=== PATIENT | female | born 1935 | race Caucasian/White ===

== ENCOUNTER 2018-03-23 10:37 | Emergency (ER) | payer OTHER ==
[~2018-03-23] VITALS: Ht 162.6 cm; Wt 64.4 kg
--- NOTE | 2018-03-23 11:44 | ED GENERAL ADULT ---
History of Present Illness General Chief Complaint: Neck/Upper Back Pain/Injury Stated Complaint: NECK PAIN S/P FALL 1 WEEK AGO Source: patient Exam Limitations: no limitations Allergies Coded Allergies: NO KNOWN ALLERGIES (03/07/13) NKA PER ANTIBIOTIC ORDER SHEET OF 03/07/13 - S Reconcile Medications Amlodipine Besylate 5 MG TABLET 1 TAB PO DAILY HEART (Reported) Aspirin (Ecotrin*) 325 MG TABLET.DR 1 TAB PO DAILY HEART HEALTH (Reported) Atorvastatin Calcium (Lipitor) 20 MG TABLET 1 TAB PO DAILY CHOLESTEROL ( Reported) Bisoprolol Fumarate/Hctz (Bisoprolol-Hctz 5-6.25 MG Tab) 5 MG-6.25 MG TABLET 1 TAB PO DAILY HEART (Reported) Cholecalciferol (Vitamin D3) 1,000 UNIT TABLET 1 TAB PO DAILY VITAMIN SUPPORT (Reported) Clorazepate Dipotassium 7.5 MG TABLET 2 TAB PO QPM UNKNOWN (Reported) Cyanocobalamin (Vitamin B-12) 1,000 MCG TABLET 1 TAB PO DAILY VITAMIN SUPPORT (Reported) Cyclobenzaprine HCl 10 MG TABLET 1 TAB PO QPM PRN pain Glimepiride 2 MG TABLET 1 TAB PO DAILY DIABETES (Reported) Lidocaine (Lidoderm) 5 % ADH..PATCH 1 PAT TOP DAILY PRN pain may wear up to 12 hours Losartan Potassium 100 MG TABLET 1 TAB PO DAILY HEART (Reported) Metformin HCl 1,000 MG TABLET 1 TAB PO BID DIABETES (Reported) Naproxen (Naprosyn) 500 MG TABLET 1 TAB PO BID PRN pain Sitagliptin Phosphate (Januvia) 100 MG TABLET 1 TAB PO DAILY DIABETES ( Reported) Triage Note: 82F FELL INTO HER REFRIDGERATOR LAST WEDNESDAY AND HIT HER HEAD, DENIES LOC. HAS HAD PAIN TO LEFT SIDE OF NECK 8.5/10 WITH LIMITED ABILITY TO TURN HEAD TO BOTH SIDES. SAW A CHIROPRACTER WHO THINKS ITS RADIATING PAIN FROM HER RIGHT SHOULDER FROM AN OLD INJURY. HAS BEEN TAKING ALEVE WITH ONLY MILD RELIEF FOR SHORT TIME. DECLINES TYLENOL OFFERED STATES IT DOESN'T WORK FOR HER. HAS AN APPT WITH DR BASHIR TOMORROW Triage Nurses Notes Reviewed? yes Onset: Gradual Duration: day(s): Timing: constant HPI: 82-year-old female with a history of hypertension, hyperlipidemia, osteoarthritis, diabetes presenting with neck pain status post a mechanical fall 4 days ago. Patient states that she tripped and fell and struck her head on the refrigerator. Denies loss of consciousness. Not on any anticoagulation. Has had a headache and left-sided neck pain since. Has tried Aleve without relief. Saw her chiropractor and had cervical spine manipulation without improvement. Denies visual changes, nausea, vomiting, or numbness/paresthesias to the extremities. Denies any symptoms preceding the fall such as lightheadedness, dizziness, chest pain, shortness of breath. (Maggy Vance) Vital Signs & Intake/Output Vital Signs & Intake/Output Vital Signs Date Time Temp Pulse Resp B/P B/P Pulse O2 O2 Flow FiO2 Mean Ox Delivery Rate 03/23 1247 97.6 66 18 146/65 96 Room Air 03/23 1044 97.0 77 18 129/73 98 Room Air (Tena KRAUS,[place] Estes) Past History Travel History Traveled to [place] past 21 day No Medical History Any Pertinent Medical History? see below for history Neurological: NONE EENT: NONE Cardiovascular: hypertension, hyperlipidemia Respiratory: NONE Gastrointestinal: NONE Hepatic: NONE Renal: NONE Musculoskeletal: arthritis Psychiatric: "meds for sleep" Endocrine: diabetes Surgical History Surgical History: non-contributory Psychosocial History What is your primary language Tajik Tobacco Use: Quit >30 days ago Family History Hx Contributory? No (Maggy Vance) Review of Systems Review of Systems Constitutional: Reports: no symptoms. EENTM: Reports: no symptoms. Respiratory: Reports: no symptoms. Cardiovascular: Reports: no symptoms. GI: Reports: no symptoms. Genitourinary: Reports: no symptoms. Musculoskeletal: Reports: see HPI. Skin: Reports: no symptoms. Neurological/Psychological: Reports: no symptoms. Hematologic/Endocrine: Reports: no symptoms. Immunologic/Allergic: Reports: no symptoms. All Other Systems: Reviewed and Negative (Maggy Vance) Physical Exam Physical Exam General Appearance: well developed/nourished, no apparent distress, alert, awake , comfortable Head: atraumatic, normal appearance Eyes: Bilateral: normal appearance, PERRL, EOMI. Ears, Nose, Throat: normal ENT inspection Neck: normal inspection, full range of motion, no midline tenderness, positive tenderness to palpation to the left lateral cervical muscles Respiratory: normal breath sounds, chest non-tender, lungs clear Cardiovascular: regular rate/rhythm Gastrointestinal: soft, non-tender Back: normal inspection, normal range of motion, no vertebral tenderness Extremities: normal inspection, normal range of motion Neurologic/Psych: no motor/sensory deficits, awake, alert, oriented x 3, normal gait, normal mood/affect, employment educational coord II-XII nml as tested, cerebellar function intact Skin: intact, normal color, warm/dry Core Measures ACS in differential dx? No CVA/TIA Diagnosis: No Sepsis Present: No Sepsis Focused Exam Completed? No (Maggy Vance) Progress Differential Diagnoses I considered the following diagnoses in my evaluation of the patient: [Head contusion versus concussion versus ICH versus Cervical sprain versus cervical strain versus carotid/vertebral artery dissection] Initial ED EKG: none (Maggy Vance) Differential Diagnoses I considered the following diagnoses in my evaluation of the patient: Plan of Care: Orders Procedure Date/time Status CBC WITHOUT DIFFERENTIAL 03/23 1326 Complete BASIC METABOLIC PANEL 03/23 1326 Complete Laboratory Tests 03/23/18 1339: Anion Gap 12, Estimated GFR > 60, BUN/Creatinine Ratio 18.3, Glucose 196 H, Calcium 9.6, CBC w Diff NO MAN DIFF REQ, RBC 4.47, MCV 84.6, MCH 28.2, MCHC 33.4 , RDW 14.5, MPV 10.1, Gran % 56.9, Lymphocytes % 28.7, Monocytes % 9.4 H, Eosinophils % 4.1, Basophils % 0.9, Absolute Granulocytes 4.2, Absolute Lymphocytes 2.1, Absolute Monocytes 0.7 H, Absolute Eosinophils 0.3, Absolute Basophils 0.1 CT scan IMPRESSION: CT scan of the head: No acute intracranial pathology. Mild involutional changes as seen. CT scan of the cervical spine: No evidence of cervical spine fracture or acute malalignment. Bulky vertebral spur formation is seen in the mid and lower cervical spine and there is mild grade 1 anterolistheses of C4 on C5, similar to the 05/26/2011 exam. Findings are consistent with chronic degenerative disc disease and ligamentous laxity. Severe facet arthropathy throughout the cervical spine with fusion across the left C4-C5 facet joints. Nonspecific subcentimeter sized nodule in the right lobe of the thyroid gland. This is similar to the thyroid ultrasound from 01/04/2012. Other thyroid nodules seen on ultrasound are poorly appreciated on this CT scan. Patient informed of all incidental findings, states she is already aware for thyroid nodule, has been followed by her PMD US IMPRESSION: 1. RIGHT: Nonhemodynamically significant stenosis of the proximal right internal carotid artery corresponding to a 0-49% stenosis by velocity criteria. 2. LEFT: Nonhemodynamically significant stenosis of the proximal left internal carotid artery corresponding to a 0-49% stenosis by velocity criteria. 3. No evidence for hemodynamically significant stenosis in the external carotid arteries. Patient informed of the above incidental findings, will relay to her PMD for follow-up. Patient likely has muscular strain, will discharge home with naproxen, Flexeril, and lidocaine patches. Reports that she had significant pain relief after IM Toradol and lidocaine patches. Counseled on supportive care and strict return precautions. (Maggy Vance) Comments: 03/23/2018 1:30:28 PM I have evaluated Abigail personally. She presents for left- sided neck pain after falling and striking her head on the refrigerator. After the fall she went to her chiropractor and it appears that after chiropractic manipulation she began having a severe left-sided neck pain. Physical examination reveals tenderness over the left side of the neck with no focal neurologic deficits. An ultrasound has been ordered to pursue the possibility of a carotid or vertebral artery aneurysm/dissection. (Tena KRAUS,[place] Estes) Departure Departure Disposition: HOME OR SELF CARE Condition: Stable Clinical Impression Primary Impression: Neck pain Referrals: Ron Bashir MD (PCP/Family) Additional Instructions: Use naproxen and lidocaine patches as needed for pain. Follow-up with your primary care provider for reevaluation. Return to the emergency department for any new or worsening symptoms. Departure Forms: Customer Survey General Discharge Information Prescriptions: Current Visit Scripts Naproxen (Naprosyn) 1 TAB PO BID PRN pain #60 TAB Lidocaine (Lidoderm) 1 PAT TOP DAILY PRN pain #30 PAT may wear up to 12 hours Cyclobenzaprine HCl 1 TAB PO QPM PRN pain #20 TAB (Maggy Vance) PA/[employer] Co-Sign Statement Statement: ED Attending supervision documentation- [x] I saw and evaluated the patient. I have also reviewed all the pertinent lab results and diagnostic results. I agree with the findings and the plan of care as documented in the PA's/[employer]'s documentation. [] I have reviewed the ED Record and agree with the PA's/[employer]'s documentation. [] Additions or exceptions (if any) to the PAs/[employer]'s note and plan are summarized below: [] (Tena KRAUS,[place] Estes) Critical Care Note Critical Care Note Critical Care Time: non-applicable (Tvaia BERGMAN,Maggy)
[2018-03-23] MEDS ORDERED: BISOPROLOL-HCT1 EAC1 PO (11:52)
[2018-03-23] MEDS ORDERED: METFORMIN HCL1000 M1 PO (11:52)
[2018-03-23] MEDS ORDERED: AMLODIPINE BESYL5 M1 PO (11:52)
[2018-03-23] MEDS ORDERED: GLIMEPIRIDE2 MG PO (11:52)
[2018-03-23] MEDS ORDERED: LIPITOR20 M2 PO (11:53)
[2018-03-23] MEDS ORDERED: LOSARTAN POTAS100 M1 PO (11:53)
[2018-03-23] MEDS ORDERED: JANUVIA100 M1 PO (11:53)
[2018-03-23] MEDS ORDERED: VITAMIN D31000 UNI2 PO (11:54)
[2018-03-23] MEDS ORDERED: VITAMIN B-121000 MC3 PO (11:54)
[2018-03-23] MEDS ORDERED: CLORAZEPATE DI7.5 M1 PO (11:54)
[2018-03-23] MEDS ORDERED: ASPIRIN EC325 M2 PO (11:55)
[2018-03-23 12:47] VITALS: BP 146/65
--- NOTE | 2018-03-23 13:13 | CT SCAN REPORT ---
EXAMINATION: CT OF THE HEAD WITHOUT CONTRAST CT OF THE CERVICAL SPINE WITHOUT CONTRAST CLINICAL INFORMATION: Fall. Presumptive diagnosis of intracranial hemorrhage and C-spine fracture. COMPARISON: Cervical spine films dated 05/26/2011. Thyroid ultrasound dated 01/04/2012. TECHNIQUE: Contiguous axial imaging was performed from the skullbase to vertex without intravenous administration of contrast. Coronal reformations of the head were obtained. Contiguous axial imaging was then performed from the skull base down to the thoracic inlet. Coronal and sagittal reformations of the cervical spine were obtained. DLP: 877.53 mGy-cm. FINDINGS: CT scan of the head: There is no evidence of acute intracranial hemorrhage or territorial infarction. No abnormal mass-effect or midline shift is seen. Albright to white matter differentiation is well preserved. No extra-axial fluid collections are identified. The ventricles and sulci are mildly enlarged, consistent with involutional changes. There is no abnormal attenuation within the brain parenchyma. Calcification of the vertebrobasilar arteries and the carotid siphons is seen. The osseous structures and soft tissues are normal. The mastoid air cells and visualized portions of the paranasal sinuses are well-aerated. CT scan of the cervical spine: Minimal grade 1 anterolisthesis of C4 on C5 is seen, similar to the 05/26/2011 C-spine study. Alignment is otherwise unremarkable. No acute fracture or dislocation is seen. The craniocervical junction space is decreased but no basilar invagination is seen. The atlantoaxial articulation is intact with moderate degenerative changes seen. Calcification of the ligaments posterior to the dens are noted. The craniocervical junction appears otherwise unremarkable. Prevertebral soft tissues are normal in thickness. There is bulky marginal spur formation seen from C4-C5 down to C6-C7 with associated mild disc space narrowing at the C5-C6 and C6-C7. There is a small sclerotic densities seen in the right side of the C5 vertebral body, unchanged from prior C-spine films. There is severe facet arthropathy throughout the cervical spine and on the left side, there is fusion across the C4-C5 facet joints and partial fusion across the C3-C4 and C5-C6 and C6-C7 facet joints. There are is a 0.8 cm diameter low-attenuation mass in the right lobe of the thyroid gland (series 9, image 233). The included soft tissues of the neck are otherwise unremarkable. Lung apices are remarkable only for mild biapical parenchymal scarring. IMPRESSION: CT scan of the head: No acute intracranial pathology. Mild involutional changes as seen. CT scan of the cervical spine: No evidence of cervical spine fracture or acute malalignment. Bulky vertebral spur formation is seen in the mid and lower cervical spine and there is mild grade 1 anterolistheses of C4 on C5, similar to the 05/26/2011 exam. Findings are consistent with chronic degenerative disc disease and ligamentous laxity. Severe facet arthropathy throughout the cervical spine with fusion across the left C4-C5 facet joints. Nonspecific subcentimeter sized nodule in the right lobe of the thyroid gland. This is similar to the thyroid ultrasound from 01/04/2012. Other thyroid nodules seen on ultrasound are poorly appreciated on this CT scan.
[2018-03-23 13:51] LABS: ABSOLUTE BASOPHIL COUNT 0.1 /CUMM (0.0-0.2); ABSOLUTE EOSINOPHIL COUNT 0.3 /CUMM (0.0-0.7); ABSOLUTE GRANULOCYTE CT 4.2 /CUMM (1.4-6.5); ABSOLUTE LYMPH COUNT 2.1 /CUMM (1.2-3.4); ABSOLUTE MONOCYTE COUNT 0.7 /CUMM (0.10-0.60); BASOPHIL % 0.9 % (0.0-2.0); EOSINOPHIL % 4.1 % (0-5); GRANULOCYTE % 56.9 % (42.2-75.2); HEMATOCRIT 37.8 % (37-47); MEAN CORPUSCULAR HGB 28.2 PG (27.0-31.0); MEAN CORPUSCULAR HGB CONC 33.4 G/DL (33.0-37.0); MEAN CORPUSCULAR VOLUME 84.6 FL (81.0-99.0); MEAN PLATELET VOLUME 10.1 FL (7.4-10.4); PLATELET COUNT 196 /CUMM (130-400); RBC DISTRIBUTION WIDTH 14.5 % (11.5-14.5); RED BLOOD CELL CT 4.47 /CUMM (4.20-5.40); WHITE BLOOD CELL COUNT 7.3 /CUMM (4.8-10.8)
--- NOTE | 2018-03-23 14:46 | ULTRASOUND REPORT ---
EXAMINATION: US DUPLEX BILATERAL CAROTID CLINICAL INFORMATION: Neck pain status post chiropractic manipulation.. COMPARISON: No similar prior examinations available for comparison. TECHNIQUE: Real-time ultrasound and Doppler techniques (integrating B-mode 2D vascular images, Doppler spectral analysis and color flow Doppler imaging) were utilized to interrogate the extracranial carotid and vertebral arteries bilaterally. The degree of stenosis determined by criteria similar to NASCET. FINDINGS: Right side: 1. Moderate amount of calcified plaque is seen in the ECA/ICA region. 2. The common carotid artery velocity is 74 cm/s. 3. The internal carotid artery velocities are 68 cm/s systolic and 17 cm/s diastolic. 4. The external carotid artery velocity is 69 cm/s. Left side: 1. Moderate to severe amount of heterogeneous plaque is seen in the ECA/ICA region. 2. The common carotid artery velocity is 79 cm/s. 3. The internal carotid artery velocities are 77 cm/s systolic and 15 cm/s diastolic. 4. The external carotid artery velocity is 84 cm/s. ADDITIONAL FINDINGS: The vertebral arteries show antegrade flow. IMPRESSION: 1. RIGHT: Nonhemodynamically significant stenosis of the proximal right internal carotid artery corresponding to a 0-49% stenosis by velocity criteria. 2. LEFT: Nonhemodynamically significant stenosis of the proximal left internal carotid artery corresponding to a 0-49% stenosis by velocity criteria. 3. No evidence for hemodynamically significant stenosis in the external carotid arteries.
[2018-03-23] MEDS ORDERED: NAPROSYN500 M1 PO (15:03)
[2018-03-23] MEDS ORDERED: CYCLOBENZAPRINE10 M1 PO (15:03)
[2018-03-23] MEDS ORDERED: LIDODERM1 EACH TOP (15:03)
== END 2018-03-23 15:09 ==
LOC: ERH 10:37
PROVIDERS: Physician Assistant
DX: M54.2 Cervicalgia (principal); R51 Headache
CPT/HCPCS: 96372; J1885